=== PATIENT | female | born 1995 | race Caucasian/White ===

== ENCOUNTER 2016-07-15 00:01 | Emergency (ER) | payer OTHER ==
[~2016-07-15] VITALS: Ht 177.8 cm; Wt 143.7 kg
[~2016-07-15 00:01] MED LIST: Z.0.BCPILL PO
[2016-07-15 00:29] VITALS: BP 145/101; PULSE 96; RESP 20; TEMP 97.2; O2SAT 93; O2SAT 96
[2016-07-15] MEDS ORDERED: methylPREDNISolone SOD SUCC 125 MG/2 ML VIAL IV PUSH ONE (00:45)
[2016-07-15] MEDS: RESP: ALBUTEROL 2.5 MG/IPRATROPIUM 0.5 MG NEB (SCH) INH ×3 (00:46→01:10)
[2016-07-15] MEDS ORDERED: VENTAER INH (00:48)
[2016-07-15] MEDS ORDERED: PRED20 PO (00:48)
--- NOTE | 2016-07-15 00:48 | PD ---
HPI . Wheezing Chief Complaint: Cold / Flu Symptoms Time Seen by Provider: 00:36 Travel History International Travel<30 days: No Contact w/Intl Traveler<30days: No Traveled to known affect area: No History of Present Illness HPI Patient presents complaining with wheezing for the last several months. It has actually probably been going on for longer than that. She has no fever. She has no sputum production. She has not been taking anything for it. [id number]: Chest DURATION: Several months TIMING: Continuous MODIFYING FACTORS: No relieving factors. Exacerbated by activity. ASSOCIATED SYMPTOMS: No sputum production. No fever. PFSH Past Medical History Medical History: Denies Significant Hx Depression: No Diminished Hearing: No Immunizations Current: Yes Tetanus Vaccination: > 5 Years Influenza Vaccination: No ?: Not : 0 Past Surgical History Oral Surgery: Yes (TOOTH EXTRACTION) Social History Alcohol Use: Yes (SOC) Tobacco Use: No (QUIT 2 MONTHS AGO) Substance Use: No Allergies-Medications (Allergen,Severity, Reaction): Coded Allergies: No Known Allergies (Unverified , 07/15/16) Reported Meds & Prescriptions Reported Meds & Active Scripts Active Reported [ Control] Review of Systems Except as stated in HPI: all other systems reviewed are Neg General / Constitutional: No: Fever, Chills Cardiovascular: No: Chest Pain or Discomfort Respiratory: Positive: Cough, Shortness of Breath, Wheezing Physical Exam Narrative GENERAL: Awake and alert and in no acute distress. SKIN: Warm and dry. HEAD: Atraumatic. Normocephalic. EYES: Pupils equal and round. ENT: No nasal bleeding or discharge. Mucous membranes pink and moist. NECK: Trachea midline. Neck is supple. CARDIOVASCULAR: Regular rate and rhythm. Heart sounds are normal. RESPIRATORY: No accessory muscle use. Diffuse inspiratory and expiratory wheezing. GASTROINTESTINAL: Abdomen soft, non-tender, nondistended. MUSCULOSKELETAL: No obvious deformities. No edema. NEUROLOGICAL: Awake and alert. No obvious cranial nerve deficits. Motor grossly within normal limits. Normal speech. PSYCHIATRIC: Appropriate mood and affect; insight and judgment normal. Data Data Last Documented VS Vital Signs Date Time Temp Pulse Resp B/P Pulse Ox O2 Delivery O2 Flow Rate FiO2 07/15/16 01:31 20 96 Room Air 07/15/16 01:30 85 158/88 07/15/16 00:29 97.2 Orders Albuterol-Ipratropium Neb (Duoneb Neb) (07/15/16 00:45) Methylprednisolone So Succ Inj (Solumedr (07/15/16 00:45) MDM Medical Decision Making Medical Screen Exam Complete: Yes Emergency Medical Condition: Yes Differential Diagnosis Differential diagnosis of dyspnea includes but is not limited to congestive heart failure, pneumonia, wheezing, pneumothorax, pulmonary embolism Narrative Course Patient presents for treatment of wheezing. This is been an ongoing problem for many months. Patient reports that she feels much better following nebs. Lungs had improved air movement. She no longer has inspiratory wheezing. She continues to have some scattered expiratory wheezing. Diagnosis Primary Impression: Bronchospasm Med/Other Pt SpecificInfo: Prescription(s) given Disposition: DISCHARGE HOME Condition: Stable Precious Puentes MD Jul 15, 2016 00:48
[2016-07-15] MEDS ORDERED: BIRTH CONTROL (00:52)
[2016-07-15 01:30] VITALS: BP 158/88; PULSE 85; RESP 20; O2SAT 96
[2016-07-15 03:23] VITALS: BP 153/84; PULSE 88; RESP 18; O2SAT 97
== END 2016-07-15 03:33 | disposition home or self-care (01) ==
LOC: PHED 00:01
DX: J98.01 Acute bronchospasm (principal); Z87.891 Personal history of nicotine dependence
CPT/HCPCS: 94640; 94664; 96374; 99283; J2930